=== PATIENT | female | born 1985 | race Caucasian/White ===

== ENCOUNTER 2024-07-14 09:25 | Outpatient (AMB) | payer BC, SELFPAY ==
[2024-07-14 09:58] VITALS: BP 157/82; PULSE 99; RESP 20; TEMP 36.7; O2SAT 99; BMI 18.5
--- NOTE | 2024-07-14 09:58 | AMB.GYNCLNOT ---
Vital Signs 07/14/24 09:58 Height 1.63 m Height Method Stated Weight 48.988 kg Weight Measurement Method Standing Scale BMI 18.5 BP 157/82 H Blood Pressure Source Automatic Cuff Blood Pressure Location Right Upper Arm Position Sitting Respiration 20 Pulse 99 Pulse Source Monitor Temp 98.0 F Temp Source Oral Pulse Oximetry (%) 99 Oxygen Delivery Method Room Air Allergies/Home Meds Allergies & Medications Allergies acetaminophen (From Vicodin) Allergy (Verified 07/14/24 10:00) hydrocodone (From Vicodin) Allergy (Verified 07/14/24 10:00) ibuprofen Allergy (Verified 07/14/24 10:00) Medication Reconciliation albuterol sulfate 90 mcg/actuation aerosol inhaler 1 inh inhalation QID 07/14/24 [History Confirmed 07/14/24] Intake Visit Data Collection New Patient or Established: New Patient (never been to [facility]) Reason for Visit:: ANNUAL WELLNESS Seen by Clinical Staff ONLY (RN/MA): No Individual Pension Consultant Required: No Do You Feel Safe at Home: Yes Authorities Contacted: N/A PCP or OBGYN visit in last 3 months: Yes Hx Now: No Are you currently on any form of Control: Yes Last menstrual period: 06/26/24 Pain Present Currently: No Pain Scale Used: Khan-Stapleton/Numerical Pain scale:: 0 Smoking Status Smoking Status: Never smoker 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 1. Little interest or pleasure in doing things: not at all 2. Feeling down, depressed, or hopeless: not at all Total score: 0 PHQ-9 3. Trouble falling or staying asleep, or sleeping too much: Not at all 4. Feeling tired or having little energy: Not at all 5. Poor appetite or overeating: Not at all 6. Feeling bad about yourself - or that you are a failure or have let yourself or your family down: Not at all 7. Trouble concentrating on things, such as reading the newspaper or watching television: Not at all 8. Moving or speaking so slowly that other people could have noticed? - Or the opposite - being so fidgety or restless that you have been moving around a lot more than usual: not at all 9. Thoughts that you would be better off or of hurting yourself in some way: Not at all Total score: 0 Source: Developed by Drs. Jerry Aggarwal, Mary Still, Jesus Rodriguez and colleagues, with an educational antonio from [employer]. Depression screen completed yes Social History Living Situation History Marital Status: Lives With: Children Housing: House Tobacco History Smoking Status: Never smoker Second Hand Smoke Exposure: No Alcohol History Alcohol Intake: Never Domestic Abuse History Do You Feel Safe at Home: Yes Office Procedures OB Clinic LOC & Office Proc's Nursing/Assessment Patient Status: Initial/New Patient OB Clinic Nursing Assessment: Medication Reconciliation, Update PMH in EMR and Vital Signs OB Clinic Coordination of Care: Complex Care and Chronic Disease 1-5, Consent,records obtained, informed consent, Education Simp Pt/Fam, Lab and Imaging orders, Results/Orders obtained and Staff clarify orders Miscellaneous Interventions: Breast Exam and Pelvic/Pap Smear Set up New Patient Charge New Patient Point Assignment: 1154 New Patient Point Charge: ANY COMMODITY BUYER Level 4 ([id number]) In Clinic Procedures Pap Smear: Yes Assessment & Plan Diagnosis / Problem List (1) Encounter for Routine Gynecological Examination:
== END 2024-07-14 10:42 | disposition home or self-care (01) ==
LOC: HODSOBC 09:25
PROVIDERS: PCP Nurse Practitioner Primary Care; Referring Provider Nurse Practitioner Primary Care; Supervising Provider Obstetrics & Gynecology; Visit Provider Obstetrics & Gynecology
DX: Z01.419 Encounter for gynecological examination (general) (routine) without abnormal findings (principal); I10 Essential (primary) hypertension; Z88.6 Allergy status to analgesic agent; Z88.5 Allergy status to narcotic agent
CPT/HCPCS: 99204; Q0091; G0463